=== PATIENT | male | born 1980 | race American Indian/Alaskan Native ===

== ENCOUNTER 2021-11-02 11:50 | Emergency (ER) | payer SELFPAY ==
[2021-11-02] MEDS ORDERED: ONDANSETRON 4 MG ODT TAB PO ONE (14:37)
[2021-11-02] MEDS ORDERED: KETOROLAC 60 MG/2 ML INJ IM ONE (14:37)
[2021-11-02 15:21] LABS: Bilirubin,Urine NEG (Negative); Blood,Urine NEG (Negative); Color,Urine Yellow (Yellow); Mucus,Urine FEW /HPF; Protein,Urine <15 mg/dL mg/dL (Negative); Urobilinogen,Urine < 2.0 mg/dL (<2.0); WBC,Urine < 1.0 /HPF (0.0-6.0)
[2021-11-02 15:59] LABS: Mean Corpuscular HGB Conc 31 % (32-34); Mean Corpuscular Volume 74 fl (84-94); Platelet Count 297 K/mm3 (140-440); Red Blood Count 6.08 M/mm3 (3.65-5.03); Red Cell Distribution Width 14.6 % (13.2-15.2)
[2021-11-02 16:01] LABS: Hematocrit 44.9 % (35.5-45.6); Hemoglobin 13.9 gm/dl (11.8-15.2)
[2021-11-02 16:05] LABS: Eosinophils # (Auto) 0.1 K/mm3 (0.0-0.4); Eosinophils % (Auto) 0.9 % (0.0-4.3); Monocytes # (Auto) 0.7 K/mm3 (0.0-0.8); Monocytes % (Auto) 10.3 % (0.0-7.3)
[2021-11-02 16:12] LABS: Alanine Aminotransferase 35 units/L (7-56); Albumin 4.3 g/dL (3.9-5); BUN/Creatinine Ratio 14; Blood Urea Nitrogen 14 mg/dL (9-20); Calcium 9.4 mg/dL (8.4-10.2); Hemolysis Index 13
[2021-11-02 16:15] LABS: Basophils % (Auto) 0.7 % (0.0-1.8); Lymphocytes # (Auto) 2.5 K/mm3 (1.2-5.4)
--- NOTE | 2021-11-02 16:17 | Cat Scan Report ---
CT ABDOMEN AND PELVIS WITHOUT CONTRAST INDICATION: abdominal pain, right flank pain CONTRAST: Without IV COMPARISON: None available. All CT scans at this location are performed using CT dose reduction for ALARA by means of automated e xposure control. FINDINGS: 3 mm nodule left lower lobe. No pneumoperitoneum. No masses. No lymphadenopathy. No free fluid. Mild right nephrolithiasis. No obs tructive changes. No bowel obstruction. Appendix not visualized. No inflammation. Gallbladder contrac lisa but no obvious inflammation. No biliary dilatation. Small fatty umbilical hernia. Moderate left i nguinal fatty hernia without bowel or acute change. IMPRESSION: 1. Right nephrolithiasis without acute change 2. Small left lower lobe nodule INCIDENTAL PULMONARY NODULE RECOMMENDATIONS Solid Nodule size* <6 mm -- Single or Multiple - Low Risk Patient: No routine follow-up - High Risk Patient: Optional CT at 12 months Note These recommendations do not apply to lung cancer screening, patients with immunosuppression, o r patients with known primary cancer. Note Newly detected indeterminate nodule in persons 35 years of age or older. Persons under the age of 35 should not receive follow-up unless there is a known primary cancer. Low Risk Patient -- minimal or absent history of smoking and of other known risk factors. High Risk Patient -- history of smoking or of other known risk factors. *Dimensions are average of long and short axes, rounded to the nearest millimeter. Based on 2017 Fleischner Society Guidelines found in Radiology 2017 284:228-243. https://doi.org/10.1 148/radiol.[email or web address] Signer Name: Modesto Mills MD Signed: 11/02/2021 4:13 PM Workstation Name: [id number]
--- NOTE | 2021-11-02 16:52 | Emergency Department Report ---
ED Abdominal Pain HPI - General Chief Complaint: Abdominal Pain Stated Complaint: PAIN/BACK/SIDE Time Seen by Provider: 11/02/21 14:34 Source: patient Mode of arrival: Ambulatory Limitations: No Limitations - History of Present Illness Initial Comments: 41-year-old black male with no past medical history presents to the emergency department for evaluation of right flank pain radiating to right quadrant along with frequent urination for the past 2 to 3 days. He denies nausea, vomiting, diarrhea, fever, dysuria, and penile discharge. He states that pain is intermittent and 7 out of 10. He denies injury or trauma but states that he has had a kidney stone in the past that felt similar. MD Complaint: abdominal pain, flank pain -: Gradual, days(s) (2-3) Location: R flank Radiation: RUQ Severity: moderate Severity scale (0 -10): 7 Quality: aching Consistency: intermittent Associated Symptoms: denies: nausea, vomiting, diarrhea, fever, chills, dysuria, hematemesis, hematochezia, melena, hematuria, anorexia, syncope - Related Data Previous Rx's Medication Instructions Recorded Last Taken Type Ketorolac [Toradol] 10 mg PO Q6H PRN #12 tab 11/02/21 Unknown Rx Ondansetron [Zofran Odt] 4 mg PO Q8HR PRN #12 tab.rapdis 11/02/21 Unknown Rx Allergies Allergy/AdvReac Type Severity Reaction Status Date / Time No Known Allergies Allergy Unverified 11/02/21 12:33 ED Review of Systems ROS: Stated complaint: PAIN/BACK/SIDE Other details as noted in HPI Comment: All other systems reviewed and negative Constitutional: denies: chills, fever Respiratory: denies: shortness of breath, SOB with exertion, SOB at rest Cardiovascular: denies: chest pain, palpitations, dyspnea on exertion, syncope Gastrointestinal: abdominal pain. denies: nausea, vomiting, diarrhea, hemateme sis, melena, hematochezia Genitourinary: frequency. denies: urgency, dysuria, hematuria, discharge, testicular pain Musculoskeletal: back pain Skin: denies: rash, lesions Neurological: denies: headache, weakness, numbness, abnormal gait ED Past Medical Hx - Past Medical History Previous Medical History?: No - Surgical History Past Surgical History?: No - Medications Home Medications: Home Medications Medication Instructions Recorded Confirmed Last Taken Type Ketorolac [Toradol] 10 mg PO Q6H PRN #12 tab 11/02/21 Unknown Rx Ondansetron [Zofran Odt] 4 mg PO Q8HR PRN #12 tab.rapdis 11/02/21 Unknown Rx ED Physical Exam - General Limitations: No Limitations General appearance: alert, in no apparent distress - Head Head exam: Present: atraumatic, normocephalic - Eye Eye exam: Present: normal appearance. Absent: conjunctival injection - Neck Neck exam: Present: normal inspection, full ROM. Absent: tenderness, lymphadeno kristen - Respiratory Respiratory exam: Present: normal lung sounds bilaterally. Absent: respiratory distress, wheezes, rales, rhonchi, stridor, chest wall tenderness, accessory muscle use - Cardiovascular Cardiovascular Exam: Present: regular rate, normal heart sounds - GI/Abdominal GI/Abdominal exam: Present: soft, tenderness (Right upper quadrant), normal bowel sounds. Absent: distended, guarding, rebound, rigid - Extremities Exam Extremities exam: Present: normal inspection. Absent: tenderness, normal capillary refill, pedal edema, joint swelling - Back Exam Back exam: Present: normal inspection, tenderness (Right upper quadrant), CVA tenderness (R). Absent: CVA tenderness (L), paraspinal tenderness, vertebral tenderness - Neurological Exam Neurological exam: Present: alert, oriented X3 - Psychiatric Psychiatric exam: Present: normal mood - Skin Skin exam: Present: warm, dry, intact, normal color ED Course Vital Signs 11/02/21 11/02/21 12:35 17:03 Temperature 98.5 F 97.7 F Pulse Rate 81 75 Respiratory 20 16 Rate Blood Pressure 137/82 143/75 [Right] O2 Sat by Pulse 98 98 Oximetry ED Medical Decision Making - Lab Data Result diagrams: 11/02/21 15:02 11/02/21 15:02 - Radiology Data Radiology results: report reviewed CT abdomen and pelvis without contrast: IMPRESSION: 1. Right nephrolithiasis without acute change 2. Small left lower lobe nodule - Medical Decision Making 41-year-old black male with no past medical history presents to the emergency department for evaluation of right flank pain radiating to right quadrant along with frequent urination for the past 2 to 3 days. He denies nausea, vomiting, diarrhea, fever, dysuria, and penile discharge. He states that pain is intermittent and 7 out of 10. He denies injury or trauma but states that he has had a kidney stone in the past that felt similar. CT scan positive for nonobstructing kidney stone to the right side. No gross abnormalities noted to labs or urine. Patient will be treated with Toradol and Zofran at home to use as needed for pain and nausea and advised to follow-up with urology. Incidental finding on CT scan with nodule to the left lower lobe of lungs, and patient was advised to follow-up with pulmonary regarding finding. He states that he was already aware of finding. Patient was advised to follow-up in the emergency department for any worsening or concerning symptoms, and he verbalized understanding of and agreement with plan of care. Critical care attestation.: If time is entered above; I have spent that time in minutes in the direct care of this critically ill patient, excluding procedure time. ED Disposition Clinical Impression: Kidney stone on right side, Lung nodule Disposition: 01 HOME / SELF CARE / HOMELESS Is pt being admited?: No Does the pt Need Aspirin: No Condition: Stable Instructions: Low-Purine Eating Plan, Kidney Stones, [id number] Additional Instructions: Take medications as prescribed. Drink plenty of fluids noncaffeinated. Follow- up with pulmonary doctor to further evaluate nodule found on lungs. Return to the emergency department for further evaluation. Prescriptions: Ketorolac [Toradol] 10 mg PO Q6H PRN #12 tab PRN Reason: Pain Ondansetron [Zofran Odt] 4 mg PO Q8HR PRN #12 tab.rapdis PRN Reason: Nausea And Vomiting Referrals: RAMSES CAMACHO MD [Primary Care Provider] - 3-5 Days PATY STEWART MD [Staff Physician] - 3-5 Days EVERT PINEDA MD [Staff Physician] - 3-5 Days Time of Disposition: 16:51
[2021-11-02 17:04] VITALS: BP 143/75
== END 2021-11-02 17:04 | disposition home or self-care (01) ==
LOC: ED 11:50
DX: N20.0 Calculus of kidney (principal); R91.1 Solitary pulmonary nodule
CPT/HCPCS: 36415; 74176; 80053; 81001; 83690; 85007; 85025; 96372; 99284; J1885; J3490; Q0162

== ENCOUNTER 2022-05-05 09:54 | Emergency (ER) | payer SELFPAY ==
--- NOTE | 2022-05-05 21:42 | Emergency Department Report ---
ED General Adult HPI - General Chief complaint: Abdominal Pain Stated complaint: Left-sided abdominal pain Time Seen by Provider: 05/05/22 21:38 Source: patient, RN notes reviewed Mode of arrival: Ambulatory Limitations: No Limitations - History of Present Illness Initial comments: This is a pleasant and cooperative 41-year-old gentleman, with a history of known left-sided hernia, as well as kidney stones. He presents to the department today with a complaint of left lower quadrant pain for the past month, worse over the past day. He currently denies headache, neck pain, chest pain, shortness of breath, vomiting, diarrhea, dysuria, and testicular pain. His pain is sharp, increases with palpation and decreases with rest and position. The patient further reports that he had a CAT scan in [place] in 2019, for symptomatic right-sided renal colic, which demonstrated the left-sided hernia. -: month(s) Location: abdomen Radiation: flank Severity scale (0 -10): 4 Consistency: other Improves with: other Worsens with: other - Related Data Previous Rx's Medication Instructions Recorded Last Taken Type Acetaminophen [Non-Aspirin Extra 500 mg PO Q6HR PRN #30 tablet 05/06/22 Unknown Rx Strength] Ibuprofen [Motrin] 600 mg PO Q8H PRN #30 tablet 05/06/22 Unknown Rx Ondansetron [Zofran Odt] 4 mg PO Q8HR PRN #20 tab.rapdis 05/06/22 Unknown Rx Allergies Allergy/AdvReac Type Severity Reaction Status Date / Time No Known Allergies Allergy Verified 05/05/22 10:15 ED Review of Systems ROS: Stated complaint: HERNIA Other details as noted in HPI Comment: All other systems reviewed and negative Gastrointestinal: abdominal pain Genitourinary: denies: dysuria, frequency, hematuria, testicular pain ED Past Medical Hx - Past Medical History Additional medical history: abdominal hernia - Surgical History Past Surgical History?: No - Medications Home Medications: Home Medications Medication Instructions Recorded Confirmed Last Taken Type Acetaminophen [Non-Aspirin Extra 500 mg PO Q6HR PRN #30 tablet 05/06/22 Unknown Rx Strength] Ibuprofen [Motrin] 600 mg PO Q8H PRN #30 tablet 05/06/22 Unknown Rx Ondansetron [Zofran Odt] 4 mg PO Q8HR PRN #20 tab.rapdis 05/06/22 Unknown Rx ED Physical Exam - General Limitations: No Limitations General appearance: alert, in no apparent distress - Head Head exam: Present: atraumatic, normocephalic - Eye Eye exam: Present: normal appearance, EOMI. Absent: nystagmus - ENT ENT exam: Present: normal exam, normal orophraynx, mucous membranes moist, normal external ear exam - Neck Neck exam: Present: normal inspection, full ROM. Absent: tenderness, meningismus - Respiratory Respiratory exam: Present: normal lung sounds bilaterally. Absent: respiratory distress, wheezes, rales, rhonchi, stridor, decreased breath sounds - Cardiovascular Cardiovascular Exam: Present: regular rate, normal rhythm, normal heart sounds. Absent: bradycardia, tachycardia, irregular rhythm, systolic murmur, diastolic murmur, rubs, gallop - GI/Abdominal GI/Abdominal exam: Present: soft, tenderness, normal bowel sounds. Absent: distended, guarding, rebound, rigid, pulsatile mass - Rectal Rectal exam: Present: deferred - Extremities Exam Extremities exam: Present: normal inspection, full ROM, other (2+ pulses noted in the bilateral upper and lower extremities. There is no palpable cord. negative Homans sign. Muscular compartments are soft. The pelvis is stable.). Absent: tenderness, pedal edema, calf tenderness - Back Exam Back exam: Present: normal inspection. Absent: tenderness, CVA tenderness (R), CVA tenderness (L), paraspinal tenderness, vertebral tenderness - Neurological Exam Neurological exam: Present: alert, oriented X3, normal gait, other (No facial droop. Tongue midline. Extraocular movements intact bilaterally. Facial sensation intact to light touch in V1, V2, V3 distribution bilaterally. 5 and a 5 strength in 4 extremities. Sensation intact to light touch in 4 extremities.). Absent: motor sensory deficit - Psychiatric Psychiatric exam: Present: normal affect, normal mood - Skin Skin exam: Present: warm, dry, intact, normal color. Absent: rash ED Course Vital Signs 05/05/22 05/05/22 05/05/22 10:12 22:07 23:42 Temperature 98.5 F Pulse Rate 89 Respiratory 16 Rate Blood Pressure 142/87 [Right] O2 Sat by Pulse 99 99 Oximetry O2 Sat by Pulse 100 Oximetry [ Digit-Finger] - Reevaluation(s) Reevaluation #1: 05/05/22 23:41 Differential diagnosis, including but not limited to: Renal colic, colitis, obstruction, constipation, volvulus, hernia Assessment and plan: 41-year-old gentleman with left lower quadrant abdominal pain and tenderness. He is afebrile with reassuring vital signs. He denies testicular pain, irritative and obstructive urinary symptoms. We will treat his symptoms. Have requested urinalysis. We will obtain a CT scan of the abdomen pelvis. We will reassess after initial data points. I discussed this plan of care with the patient. He articulated understanding. He is agreeable to the plan of care. Reevaluation #2: 05/06/22 00:38 CT scan shows left-sided hernia, and right-sided nonobstructive nephrolithiasis. Urinalysis is nonactionable. Patient resting comfortably in stretcher, and feels improved. Rest, ice, compression, elevation, Tylenol, Motrin, compression garments, outpatient follow-up with primary care and/or general surgery. Discussed diet lifestyle modifications. Return precautions are reviewed. All questions are answered - Pulse Oximetry Interpretation Digit-Finger Initial Pulse Oximetry Readin O2 Sat by Pulse Oximetry: 100 Actions Taken: none ED Medical Decision Making - Lab Data Result diagrams: 05/05/22 22:13 05/05/22 22:13 Vital Signs 05/05/22 05/05/22 10:12 22:07 Temperature 98.5 F Pulse Rate 89 Respiratory 16 Rate Blood Pressure 142/87 [Right] O2 Sat by Pulse 99 99 Oximetry - Radiology Data Radiology results: pending, report reviewed, image reviewed [facility] [address] [place] [address] Cat Scan Report Signed Patient: ISAAC MARISCAL MR#: [id number] : 1980 Acct:[id number] Age/Sex: 41 / M ADM Date: 05/05/22 Loc: ED Attending Dr: Ordering Physician: CLARENCE BYRD MD Date of Service: 05/05/22 Procedure(s): CT abdomen pelvis w con Accession Number(s): [id number] cc: CLARENCE BYRD MD CT ABDOMEN AND PELVIS WITH CONTRAST INDICATION / CLINICAL INFORMATION: Left lower quadrant abdominal pain. TECHNIQUE: Axial CT images were obtained through the abdomen and pelvis after 100 mL Omnipaque [address] scans at this location are performed using CT dose reduction for ALARA by means of automated exposure control. COMPARISON: 11/02/2021 FINDINGS: LOWER CHEST: Stable small 4 mm left lower lobe noncalcified pulmonary nodule (series 2, image 12). LIVER: Mild hepatomegaly and diffuse hepatic steatosis. GALLBLADDER/BILIARY: No significant abnormality or evidence for biliary obstruction. PANCREAS: No significant abnormality. 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 ADRENALS: No significant abnormality. KIDNEYS/URETERS: Stable nonobstructive right nephrolithiasis. Negative for uret eral calculus or hydronephrosis. GI: No acute bowel inflammation, obstruction or evidence for ischemia. APPENDIX: No significant abnormality. PERITONEUM: No pneumoperitoneum, free peritoneal fluid or loculated fluid collection. LYMPH NODES: No significant adenopathy. AORTA / ARTERIES: No significant abnormality. URINARY BLADDER: No significant abnormality. REPRODUCTIVE ORGANS: No significant abnormality. SKELETAL SYSTEM: No acute or destructive osseous process. ADDITIONAL FINDINGS: Stable large fat-containing left inguinal hernia, small fat-containing right inguinal hernia and small fat-containing umbilical hernia. IMPRESSION: 1. No acute abdominopelvic process. 2. Nonobstructive right nephrolithiasis and other stable mild chronic incide ntal findings, as detailed above. Signer Name: Giorgio Siddiqi MD Signed: 05/06/2022 12:28 AM Workstation Name: [id number] Transcribed By: Dictated By: GIORGIO SIDDIQI MD Electronically Authenticated By: GIORGIO SIDDIQI MD Signed Date/Time: 05/06/2227 DD/ TD/TT: Critical care attestation.: If time is entered above; I have spent that time in minutes in the direct care of this critically ill patient, excluding procedure time. ED Disposition Clinical Impression: Left sided abdominal pain, Left inguinal hernia, Nephrolithiasis Disposition: 01 HOME / SELF CARE / HOMELESS Is pt being admited?: No Does the pt Need Aspirin: No Condition: Good Additional Instructions: Rest, avoid heavy lifting and strenuous physical activities. Recommend the patient purchase [id number] compression garments. Avoid consumption of alcohol, tobacco, smoke products, heavy and spicy foods. Please drink at least 4 to 6 cups of water per day indefinitely. Follow-up with a primary care doctor within the next week. Follow-up with a general surgeon within the next week to [address] scan abdomen pelvis demonstrated asymptomatic right-sided nephrolithiasis/kidney stone, as well as multiple hernias. Incidental nodules were noted, which should be followed up by your primary care doctor. Please have your primary care doctor contact the medical records depar tment, to follow-up on nonemergent incidental abnormal findings. Please take the pain medications as needed and directed. Please return to the emergency room right away with new pain, worsened pain, migration of pain, projectile vomiting, change in mental status, confusion, inability tolerate liquid feeds, new, worsened or different symptoms not present on the initial emergency room evaluation Referrals: RAMSES CAMACHO MD [Primary Care Provider] - 3-5 Days ERMA DUNCAN DO [Staff Physician] - 3-5 Days [facility] [Provider Group] - 3-5 Days Forms: Work/School Release Form(ED)
[2022-05-05] MEDS ORDERED: MORPHINE 4 MG/1 ML INJ IV ONE (21:57)
[2022-05-05] MEDS ORDERED: SODIUM CHLORIDE 0.9% 1000 ML 1,000 ML IV ONE (21:57)
[2022-05-05 22:59] LABS: Hemoglobin 13.4 gm/dl (11.8-15.2); Mean Corpuscular HGB Conc 32 % (32-34); Mean Corpuscular Volume 74 fl (84-94); Platelet Count 298 K/mm3 (140-440); Red Blood Count 5.72 M/mm3 (3.65-5.03); Red Cell Distribution Width 14.3 % (13.2-15.2)
[2022-05-05 23:17] LABS: BUN/Creatinine Ratio 13; Blood Urea Nitrogen 13 mg/dL (9-20); Calcium 9.7 mg/dL (8.4-10.2); Hemolysis Index 10
[2022-05-06 00:21] LABS: Bilirubin,Urine NEG (Negative); Blood,Urine NEG (Negative); Color,Urine Yellow (Yellow); Protein,Urine <15 mg/dL mg/dL (Negative)
[2022-05-06 00:22] LABS: RBC,Urine < 1.0 /HPF (0.0-6.0); Urobilinogen,Urine < 2 mg/dL (<2.0); WBC,Urine < 1.0 /HPF (0.0-6.0)
--- NOTE | 2022-05-06 00:32 | Cat Scan Report ---
CT ABDOMEN AND PELVIS WITH CONTRAST INDICATION / CLINICAL INFORMATION: Left lower quadrant abdominal pain. TECHNIQUE: Axial CT images were obtained through the abdomen and pelvis after 100 mL Omnipaque [address] scans at this location are performed using CT dose reduction for ALARA by means of automated exposure control. COMPARISON: 11/02/2021 FINDINGS: LOWER CHEST: Stable small 4 mm left lower lobe noncalcified pulmonary nodule (series 2, image 12). LIVER: Mild hepatomegaly and diffuse hepatic steatosis. GALLBLADDER/BILIARY: No significant abnormality or evidence for biliary obstruction. PANCREAS: No significant abnormality. 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 ADRENALS: No significant abnormality. KIDNEYS/URETERS: Stable nonobstructive right nephrolithiasis. Negative for ureteral calculus or hydro nephrosis. GI: No acute bowel inflammation, obstruction or evidence for ischemia. APPENDIX: No significant abnormality. PERITONEUM: No pneumoperitoneum, free peritoneal fluid or loculated fluid collection. LYMPH NODES: No significant adenopathy. AORTA / ARTERIES: No significant abnormality. URINARY BLADDER: No significant abnormality. REPRODUCTIVE ORGANS: No significant abnormality. SKELETAL SYSTEM: No acute or destructive osseous process. ADDITIONAL FINDINGS: Stable large fat-containing left inguinal hernia, small fat-containing right ing uinal hernia and small fat-containing umbilical hernia. IMPRESSION: 1. No acute abdominopelvic process. 2. Nonobstructive right nephrolithiasis and other stable mild chronic incidental findings, as detaile d above. Signer Name: Papito Siddiqi MD Signed: 05/06/2022 12:28 AM Workstation Name: [id number]
[2022-05-06 01:05] VITALS: BP 122/71
== END 2022-05-06 01:05 | disposition home or self-care (01) ==
LOC: ED 09:54
DX: R10.9 Unspecified abdominal pain (principal); R10.32 Left lower quadrant pain; K40.90 Unilateral inguinal hernia, without obstruction or gangrene, not specified as recurrent; N20.0 Calculus of kidney
CPT/HCPCS: 36415; 74177; 80048; 81001; 85027; 96361; 96374; 99284; J2270; Q9967